=== PATIENT | female | born 2000 | race Asian ===

== ENCOUNTER 2021-07-03 00:36 | Emergency (ER) | payer BC, SELFPAY ==
--- NOTE | ~2021-07-03 | CT_ITS ---
EXAMINATION: NONCONTRAST HEAD CT NONCONTRAST CERVICAL SPINE CT INDICATION INFORMATION: Fall COMPARISON: None TECHNIQUE: Separate noncontrast CT examinations of the head and cervical spine were performed. Coronal head CT images and coronal and sagittal cervical spine images were created at the technologist workstation. DLP: 899 mGy-cm DOSE LOWERING TECHNIQUES: This CT examination was performed using dose optimization techniques as appropriate, variously including the following: - Automated exposure control - Adjustment of mA and/or kV according to patient size (this includes techniques or standardized protocols for targeted exams were dose is matched to indication/reason for exam; i.e. extremities or head) - Use of iterative reconstruction technique FINDINGS: Head: There is no evidence of acute intracranial hemorrhage or territorial infarction. No abnormal mass-effect or midline shift is seen. Cantu to white matter differentiation is well preserved. No extra-axial fluid collections are identified. The ventricles are normal in size. There is no abnormal attenuation within the brain parenchyma. The osseous structures and soft tissues are normal. The mastoid air cells and visualized portions of the paranasal sinuses are well-aerated. Cervical spine: There is anatomic alignment of the vertebral bodies and posterior elements. Vertebral body heights are maintained. Intervertebral disc spaces are preserved. No evidence of acute fracture. No prevertebral soft tissue swelling. Visualized portions of the lung apices are unremarkable. The thyroid gland is unremarkable. CT/CT cervical spine wo con IMPRESSION: No acute intracranial findings. No acute findings identified in the cervical spine.
--- NOTE | ~2021-07-03 | CT_ITS ---
EXAMINATION: NONCONTRAST HEAD CT NONCONTRAST CERVICAL SPINE CT INDICATION INFORMATION: Fall COMPARISON: None TECHNIQUE: Separate noncontrast CT examinations of the head and cervical spine were performed. Coronal head CT images and coronal and sagittal cervical spine images were created at the technologist workstation. DLP: 899 mGy-cm DOSE LOWERING TECHNIQUES: This CT examination was performed using dose optimization techniques as appropriate, variously including the following: - Automated exposure control - Adjustment of mA and/or kV according to patient size (this includes techniques or standardized protocols for targeted exams were dose is matched to indication/reason for exam; i.e. extremities or head) - Use of iterative reconstruction technique FINDINGS: Head: There is no evidence of acute intracranial hemorrhage or territorial infarction. No abnormal mass-effect or midline shift is seen. Cantu to white matter differentiation is well preserved. No extra-axial fluid collections are identified. The ventricles are normal in size. There is no abnormal attenuation within the brain parenchyma. The osseous structures and soft tissues are normal. The mastoid air cells and visualized portions of the paranasal sinuses are well-aerated. Cervical spine: There is anatomic alignment of the vertebral bodies and posterior elements. Vertebral body heights are maintained. Intervertebral disc spaces are preserved. No evidence of acute fracture. No prevertebral soft tissue swelling. Visualized portions of the lung apices are unremarkable. The thyroid gland is unremarkable. CT/CT head/brain wo con IMPRESSION: No acute intracranial findings. No acute findings identified in the cervical spine.
--- NOTE | 2021-07-03 01:00 | PC.NURSE ---
PT TO ED VIA EMS AFTER DRINKING 5-8 SHOTS OF VODKA AND GIN. PT ARRIVES SLEEPY BUT WAKES TO VOICE. RESPIRATIONS EASY, N/L. SKIN W/D. PT CHG INTO GOWN AND ON THE MONITOR. PT MOANING AND WAKES TO VOICE. VS KWESI. AT BEDSIDE FOR EVAL. IV PLACED TO RAC, LABS DRAWN TO LAB. WILL CONTINUE TO MONITOR PT.
[2021-07-03 01:02] VITALS: BP 100/59; PULSE 68; PULSE 71; RESP 18; RESP 21; TEMP 36.6; O2SAT 94; O2SAT 99; BMI 18.9; BMI 21.0
[2021-07-03 01:14] LABS: MANUAL DIFF FLAG NO
--- NOTE | 2021-07-03 01:14 | ED_ITS ---
HPI - Alcohol General Chief Complaint: ETOH/Substance Use Stated Complaint: FALL W/FACE BRUISE & DIFF AMB S/P ETOH USE Time Seen by Provider: 07/03/21 01:14 Source: EMS Mode of arrival: EMS History of Present Illness HPI narrative: 20-year-old female brought in by EMS after reportedly drinking 5- 8 shots of vodka and gin. As per EMS the friends had tried to get the patient up to the restroom, she became unsteady and fell striking her right forehead on the floor. [employer] has notified the parents. Related Data Allergies Allergy/AdvReac Type Severity Reaction Status Date / Time Unable to Assess Allergy Verified 07/03/21 01:03 Review of Systems Review of Systems: Pertinent positives and negatives as stated in HPI 10 point review of systems is otherwise negative PMFSH Past Medical History Source: nursing notes reviewed Social History Social History Advance Directives: No Advance Directives Information Provided: No Patient : No Physical Exam Vital Signs: Vital Signs: Last Vital Signs Temp 98 F 07/03/21 01:02 Pulse 74 07/03/21 06:34 Resp 18 07/03/21 06:34 BP 110/58 L 07/03/21 06:34 Pulse Ox 100 07/03/21 06:34 Body Mass Index 18.9 VITAL SIGNS: Reviewed. GENERAL: Patient smells of alcohol, Well developed, well nourished, in no acute distress. HEAD: Normocephalic/contusion noted to the right forehead EYES: PERRLA, EOMI EARS: Ext canals without abnormality, TMs non-bulging and non-erythematous NOSE: Nares patent bilateral OROPHARYNX: no oral lesions noted, posterior pharynx clear and non-erythematous without noted tonsillar enlargement/erythema/exudates NECK: Supple, no adenopathy LUNGS: Normal breath sounds. No adventitious sounds or accessory muscle use. SpO2<99> CARDIOVASCULAR: Regular rate and rhythm without noted murmurs, no JVD or lower extremity edema. ABDOMEN: Soft, non-tender, non-distended with bowel sounds. MUSCULOSKELETAL: No tenderness, deformities, or effusions noted on gross inspection. EXTREMITIES: No cyanosis, clubbing or edema. SKIN: Inspection of the skin reveals no rashes NEUROLOGIC: Drowsy but arousable and oriented x 2. Strength and sensation to light touch were grossly intact x 4. Course Course Course Narrative: 20-year-old female with history and clinical presentation consistent with significant alcohol intoxication, spontaneously breathing, but due to contusion of the head and absent signs of a protected fall will proceed with CT of the head and cervical spine. There are no other acute findings at this time. Patient given IV fluids as well. On review of all investigations to include imaging there are no acute findings. On re-evaluation patient is feeling much better and is clinically sober and stable for discharge. She has set up a safe ride back to the campus. MDM - Alcohol Lab Data Result diagrams: 07/03/21 01:09 07/03/21 01:09 Labs: Lab Results 07/03/21 07/03/21 07/03/21 Range/Units 01:09 01:09 01:09 WBC 7.0 (4.8-10.8) X10*3/uL RBC 3.81 L (4.20-5.50) X10*6/uL Hgb 11.6 L (12.0-16.0) g/dl Hct 34.1 L (37-47) % MCV 89.5 (80-98) fL MCH 30.4 (27.0-33.0) pg MCHC 34.0 (31.0-35.0) g/dl RDW 12.6 (11.0-16.0) % Plt Count 246 (160-400) X10*3/uL MPV 9.0 L (9.4-12.3) fL Immature Gran % (Auto) 0.3 (0.0-0.4) % Neut % (Auto) 51.2 (45-73) % Lymph % (Auto) 38.2 (20-40) % Foard % (Auto) 6.3 (2-11) % Eos % (Auto) 3.7 (0-4) % Baso % (Auto) 0.3 (0-2) % Lymph # (Auto) 2.7 (1.2-4.9) X10*3/uL Foard # (Auto) 0.4 (0.1-1.2) X10*3/uL Eos # (Auto) 0.3 (0.0-0.4) X10*3/uL Baso # (Auto) 0.0 (0.0-0.2) X10*3/uL Abs Immat Gran (auto) 0.02 (0.00-0.03) X10*3/uL Absolute Neuts (auto) 3.6 (2.0-8.3) X10*3/uL Absolute Nucleated RBC 0.000 (0.0-0.012) X10*3/uL Nucleated RBC % (auto) 0.0 (0.0-0.2) /100WBC Sodium 145 (135-145) mmol/L Potassium 3.5 (3.3-5.1) mmol/L Chloride 113 H (96-108) mmol/L Carbon Dioxide 20 L (22-29) mmol/L Anion Gap 16 (12-20) BUN 9 (9-16) mg/dL Creatinine 0.74 (0.5-1.4) mg/dL Estim Creat Clear Calc 95.7 Estimated GFR > 60 Random Glucose 104 (60-115) mg/dL Calcium 8.9 (8.4-10.2) mg/dL Total Bilirubin 0.3 (0.0-1.0) mg/dL AST 20 (5-31) U/L ALT 10 (0-31) U/L Alkaline Phosphatase 44 (39-117) U/L Total Protein 7.2 (6.5-8.0) g/dL Albumin 4.1 (3.5-5.0) g/dL Lipase 27 (8-78) U/L Beta HCG, Quant < 2 mIU/mL Ethyl Alcohol 214 mg/dL Discharge Plan Discharge Clinical Impression: Alcoholic intoxication, Contusion Patient Disposition: Home, Self-Care Instructions: Alcohol Intoxication (ED), Contusion in Adults (ED) Additional Instructions: 1. Stop drinking so much alcohol. 2. Increase fluid hydration especially with water over the next 24-48 hours. 3. Recommend [id number] Tylenol/ibuprofen as needed for headaches. Return to the ER for acute worsening of symptoms. Referrals: Physician,Unknown [Primary Care Provider] - 2 days
[2021-07-03 01:15] LABS: Basophils Percent Auto 0.3 % (0-2); Eosinophils Absolute Auto 0.3 X10*3/uL (0.0-0.4); Eosinophils Percent Auto 3.7 % (0-4); Hematocrit 34.1 % (37-47); Hemoglobin 11.6 g/dl (12.0-16.0); Imm Gran Abs Auto 0.02 X10*3/uL (0.00-0.03); Imm Gran Pct Auto 0.3 % (0.0-0.4); Lymphocytes Absolute Auto 2.7 X10*3/uL (1.2-4.9); Lymphocytes Percent Auto 38.2 % (20-40); Mean Corpuscular Hemoglobin 30.4 pg (27.0-33.0); Mean Corpuscular Volume 89.5 fL (80-98); Monocytes Absolute Auto 0.4 X10*3/uL (0.1-1.2); Monocytes Percent Auto 6.3 % (2-11); Neutrophils Absolute Auto 3.6 X10*3/uL (2.0-8.3); Neutrophils Percent Auto 51.2 % (45-73); Platelet Count 246 X10*3/uL (160-400); Red Blood Count 3.81 X10*6/uL (4.20-5.50); Red Cell Distribution Width 12.6 % (11.0-16.0)
--- NOTE | 2021-07-03 01:42 | PC.NURSE ---
FAMILY UPDATED PER FAITH DEWEY NURSE.
[2021-07-03 01:47] LABS: Alanine Aminotransferase 10 U/L (0-31); Albumin Level 4.1 g/dL (3.5-5.0); Alkaline Phosphatase 44 U/L (39-117); Anion Gap 16 (12-20); Aspartate Amino Transferase 20 U/L (5-31); Bilirubin Total 0.3 mg/dL (0.0-1.0); Blood Urea Nitrogen 9 mg/dL (9-16); Calcium 8.9 mg/dL (8.4-10.2); Carbon Dioxide 20 mmol/L (22-29); Chloride 113 mmol/L (96-108); Creatinine Clr Calc Pharmacy 95.7; Estimated Glomerular Filt Rate > 60; Glucose Random 104 mg/dL (60-115); Lipase 27 U/L (8-78); Potassium 3.5 mmol/L (3.3-5.1); Sodium 145 mmol/L (135-145); Total Protein 7.2 g/dL (6.5-8.0)
[2021-07-03 02:11] LABS: Ethanol 214 mg/dL
[2021-07-03 03:15] LABS: HCG Quantitative < 2 mIU/mL
--- NOTE | 2021-07-03 04:19 | PC.NURSE ---
pt resting appears comfortable and in NAD at this time. pt remains on monitor.
[2021-07-03 04:57] VITALS: BP 108/51; PULSE 78; RESP 16; O2SAT 100
[2021-07-03 06:34] VITALS: BP 110/58; PULSE 74; RESP 18; O2SAT 100
[2021-07-03 07:42] VITALS: BP 99/56; PULSE 75; RESP 18
--- NOTE | 2021-07-03 07:43 | PC.NURSE ---
Pt awake, vss, answering questions appropriately, denies pain, n/v/dizziness. Pt cleared for discharge, she called friend to pick her up and is currently awaiting friend's arrival to the ed.
--- NOTE | 2021-07-03 08:23 | PC.NURSE ---
Pt discharged to friend who came to pick her up.
== END 2021-07-03 08:23 | disposition home or self-care (01) ==
PROVIDERS: Emergency Provider Student in an Organized Health Care Education/Training Program
DX: S00.83XA Contusion of other part of head, initial encounter (principal); F10.129 Alcohol abuse with intoxication, unspecified; Y90.7 Blood alcohol level of 200-239 mg/100 ml; W18.30XA Fall on same level, unspecified, initial encounter; Y93.9 Activity, unspecified; Y92.9 Unspecified place or not applicable; Y99.9 Unspecified external cause status; Z71.41 Alcohol abuse counseling and surveillance of alcoholic; Z79.899 Other long term (current) drug therapy
CPT/HCPCS: 36415; 70450; 72125; 80053; 82077; 83690; 84702; 85025; 99284